=== PATIENT | female | born 1990 | race Caucasian/White ===

== ENCOUNTER → 2017-10-07 | Outpatient (CLI) | payer OTHER ==
[2017-10-08 08:13] LABS: RUBEOLA (MEASLES) IGG 94.4 AU/mL (Immune >29.9)
== END | disposition home or self-care (01) ==
LOC: EMPHLTH 11:54
PROVIDERS: ATTEND Internal Medicine
DX: Z02.1 Encounter for pre-employment examination (principal)
CPT/HCPCS: 86706; 86735; 86762; 86765; 86787